=== PATIENT | male | born 2000 | race Asian ===

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

== ENCOUNTER 2022-01-16 22:05 | Emergency (ER) | payer OTHER ==
[~2022-01-16] VITALS: Ht 167.6 cm; Wt 72.6 kg
[~2022-01-16 22:05] MED LIST: EPIN0.3P3 IM; PRED50TA PO
--- NOTE | 2022-01-16 22:15 | NUR ---
BIBS C/O SOB/ALLERGIC REACTION TO STREET FOOD CONSUMED AT 2030. ALLERGY TO PEANUTS. NO EPI PEN USED PASTRYCOOK. ON ASSESSMENT PT BREATHING UNLABORED -WHEEZES 97% RA. NOTED REDNESS TO BILATERAL EYES AND FACE BUT DENIES HIVES OR ITCHING. ALSO ENDORSES NASUEA W/O VOMITING. PLACED ON MONITOR AND PULSE OX AND V/S WNL.
--- NOTE | 2022-01-16 22:15 | NUR ---
BIBS C/O SOB/ALLERGIC REACTION TO STREET FOOD CONSUMED AT 2029. ALLERGY TO PEANUTS. EPIPEN NOT USED BREAKER HAND. PATIENT IS ALL FLUSHED. AAOX4. PLACED COMFORTABLY IN BED. VITALS CHECKED.
[2022-01-16] MEDS ORDERED: FAMOTIDINE (20 MG) 20 MG TABLET ONE (22:26)
[2022-01-16] MEDS ORDERED: diphenhydrAMINE HCL 25 MG CAPSULE ONE (22:26)
[2022-01-16] MEDS ORDERED: predniSONE 20 MG TABLET ONE (22:26)
[2022-01-16] MEDS ORDERED: PRED20TA PO (22:30)
[2022-01-16] MEDS ORDERED: CETI-90 PO (22:30)
[2022-01-16] MEDS ORDERED: FAMOTIDINE (20 MG) 20 MG TABLET PO ONE (22:30)
[2022-01-16] MEDS ORDERED: FAMO-108 PO (22:30)
[2022-01-16] MEDS ORDERED: diphenhydrAMINE HCL 25 MG CAPSULE PO ONE (22:30)
[2022-01-16] MEDS ORDERED: predniSONE 20 MG TABLET PO ONE (22:30)
--- NOTE | 2022-01-16 22:35 | NUR ---
PATIENT AND FAMILY MEMBER IS PANICKING. PATIENT VOMITED. THEY ARE ASKING FOR EPIPEN. DR. SHEPPARD MADE AWARE.
[2022-01-16] MEDS ORDERED: EPINEPHRINE (1:1000) 1 MG/ML AMPUL ONE (22:41)
[2022-01-16] MEDS ORDERED: methylPREDNISolone SOD SUCC 125 MG/2ML VIAL ONE (22:41)
[2022-01-16] MEDS ORDERED: ONDANSETRON HCL/PF 4 MG/2 ML VIAL ONE (22:41)
[2022-01-16] MEDS ORDERED: diphenhydrAMINE HCL 50 MG/ML VIAL ONE (22:41)
[2022-01-16] MEDS ORDERED: FAMOTIDINE/PF INJ 20 MG/2 ML VIAL IV ONE ×2 (22:44→23:00)
[2022-01-16] MEDS ORDERED: diphenhydrAMINE HCL 50 MG/ML VIAL IV ONE (23:00)
[2022-01-16] MEDS ORDERED: methylPREDNISolone SOD SUCC 125 MG/2ML VIAL IV ONE (23:00)
[2022-01-16] MEDS ORDERED: EPINEPHRINE (1:1000) MDV 30 MG/30ML VIAL SUBCUT ONE (23:00)
[2022-01-16] MEDS ORDERED: ONDANSETRON HCL/PF 4 MG/2 ML VIAL IV ONE (23:00)
--- NOTE | 2022-01-17 02:04 | NUR ---
Patient discharged to home in stable condition. Written and verbal after care instructions given. Patient verbalizes understanding of instruction.
[2022-01-17 02:05] VITALS: BP 131/60
== END 2022-01-17 02:06 | disposition home or self-care (01) ==
LOC: ER 22:07
DX: T78.2XXA Anaphylactic shock, unspecified, initial encounter (principal); Z79.899 Other long term (current) drug therapy
CPT/HCPCS: 99284; 96374; 96375; 96372; Q0163; J1200; J0171 ×2; J3490; J7512; J2930; J2405